=== PATIENT | female | born 1955 | race Caucasian/White ===

== ENCOUNTER → 2017-07-06 | Outpatient (CLI) | payer OTHER ==
[~2017-07-06] MED LIST: ALBUAER3 INH; ASPI1TAB57 PO; ATOR40TA16 PO; CERTTAB6 PO; FISH1000 PO; FISHCAP4 PO; FLUT1SPR16; LACTCAP8 PO; LINA145C PO; LOPR50TA12 PO; MAXZTAB PO; METO50TA PO; MIRA25TA PO; PROBCAP28 PO; TRIA37.5 PO; VESI10TA2 PO
[2017-07-06 09:05] LABS: HEMATOCRIT 39.9 % (35.0-46.0); MEAN CELL VOLUME 86.9 FL (80.0-100.0); MEAN CORPUSCULAR HEMOGLOBIN 29.7 PG (27.0-34.0); MEAN CORPUSCULAR HGB CONC 34.1 % (32.0-36.0); PLATELET COUNT 181 TH/MM3 (150-450); RED BLOOD COUNT 4.59 MIL/MM3 (4.00-5.30); REVIEW FLAG FINAL; WHITE BLOOD COUNT 5.8 TH/MM3 (4.0-11.0)
[2017-07-06 09:11] LABS: BLOOD, URINE NEG (NEG); COMMENT (UR) CATH-CULT NOT IND; CULTURE IF INDICATED CATH CULTURE NOT IND; GLUCOSE,URINE NEG (NEG); KETONE, URINE NEG (NEG); MUCUS URINE FEW /lpf (OCC); NITRITE,URINE NEG (NEG); SQUAMOUS EPITHELIAL CELL URINE 1 /hpf (0-5); URINE COLOR LIGHT-YELLOW (YELLW/STRAW)
[2017-07-06 09:14] LABS: APTT (PATIENT) 24.5 SEC (24.3-30.1); PROTHROMBIN TIME - PATIENT 10.7 SEC (9.8-11.6)
[2017-07-06 09:52] LABS: BICARBONATE 27.6 MEQ/L (21.0-32.0); POTASSIUM 3.9 MEQ/L (3.5-5.1)
--- NOTE | 2017-07-06 17:59 | EKG ---
Date Performed: 07/06/2017 Time Performed: 08:44:42 PTAGE: 61 years EKG: Sinus rhythm WITH FIRST DEGREE AV BLOCK LOW QRS VOLTAGE IN PRECORDIAL LEADS INCOMPLETE RIGHT BUNDLE BRANCH BLOCK POSSIBLE ANTERIOR MYOCARDIAL INFARCTION, PROBABLY OLD ABNORMAL ECG PREVIOUS TRACING : 04/07/2013 10.22 DOCTOR: Leeanne Ching Interpretating Date/Time 07/06/2017 17:57:46
== END ==
LOC: CPRE 08:04
PROVIDERS: ATTEND Orthopaedic Surgery
DX: Z01.812 Encounter for preprocedural laboratory examination (principal); Z01.810 Encounter for preprocedural cardiovascular examination; M79.609 Pain in unspecified limb; M17.12 Unilateral primary osteoarthritis, left knee; I10 Essential (primary) hypertension
CPT/HCPCS: 36415; 80048; 81001; 85027; 85610; 85730; 93005

== ENCOUNTER 2017-07-24 07:00 | Inpatient (IN) | payer OTHER ==
[~2017-07-24] VITALS: Ht 172.7 cm; Wt 107.4 kg
[~2017-07-24 07:00] MED LIST changes: -FISH1000 PO; -LOPR50TA12 PO; -MAXZTAB PO; -MIRA25TA PO; -PROBCAP28 PO
[2017-08-14] MEDS ORDERED: POVIDONE IODINE 5% (ANTISEPSIS KIT) 4 APPLICATIONS EACH NARE PRN (06:00)
[2017-08-14] MEDS ORDERED: CHLORHEXIDINE GLUCONATE 2 % 1 PACK (2 CLOTHS) TOPICAL PRN (06:00)
[2017-08-14] MEDS ORDERED: METOPROLOL TARTRATE 25 MG TAB PO PRN (06:00)
[2017-08-14] MEDS ORDERED: SODIUM CHLORID 0.9% 500 ML IV PRN (06:00)
[2017-08-14] MEDS ORDERED: LACTATED RINGER'S 1000 ML IV PRN (06:00)
[2017-08-14] MEDS ORDERED: GENTAMICIN SULFATE 80 MG/2 ML VIAL ONE (06:08)
[2017-08-14] MEDS ORDERED: CHLORHEXIDINE GLUCONATE 4% SOLN 120 ML BTL TOPICAL SCH (06:15)
[2017-08-14] MEDS ORDERED: ceFAZolin 2 GM PREMIX 50 ML IV SCH (06:15)
[2017-08-14] MEDS ORDERED: PROPOFOL 500 MG/50 ML INJ 50 ML ONE (06:35)
[2017-08-14] MEDS ORDERED: BUPIVACAINE LIPOSOME PF 1.3% 20 ML VIAL ONE (06:48)
--- NOTE | 2017-08-14 06:54 | HHI.FF ---
Face to Face Verification Diagnosis: (1) Status post total left knee replacement Physical Therapy Safety evaluation Knee: Total knee, Protocol: Left, Gait training, Full weight bearing Left LE Weight Bearing: WB as tolerated Left LE Range of Motion: Active ROM (AROM, AAROM, PROM. ROM goal is 0 to 130 degrees.) Nursing Nursing: Dressing changes Dressing Changes: Daily dressing change (starting on postop day 7.), Coverderm/ [place] Additional Instructions Remove steristrips on postop day 14. I have seen patient Pinky Crow on 08/14/17. My clinical findings support the need for the requested home health care services because: Ltd mobility - disease progression Limited ability to care for self High risk of falls I certify that my clinical findings support that this patient is homebound because: Post-op weakness Unsteady gait/balance Unsafe to leave home unassisted Kaylen Brewer MD ([place]) Aug 14, 2017 06:54
[2017-08-14] MEDS ORDERED: ECASA81 PO (06:58)
[2017-08-14] MEDS ORDERED: TRANEXAMIC ACID IV SCH ×2 (07:00→10:00)
[2017-08-14] MEDS ORDERED: SODIUM CHLORIDE 0.9% IV SCH ×2 (07:00→10:00)
[2017-08-14] MEDS ORDERED: ZOLPIDEM TARTRATE 5 MG TAB PO PRN (07:00)
[2017-08-14] MEDS ORDERED: ONDANSETRON HCL 4 MG/2 ML VIAL IVP PRN (07:00)
[2017-08-14] MEDS ORDERED: ALBUTEROL SULFATE 90 MCG/ACT HFA 8 GM INHALER INH PRN (07:00)
[2017-08-14] MEDS ORDERED: ACETAMINOPHEN/HYDROcodone 325 MG/7.5 MG TAB PO PRN (07:00)
[2017-08-14] MEDS ORDERED: TRANEXAMIC ACID INJ 0 MG in SODIUM CHLORIDE 0.9% INJ 100 ML IV SCH (07:00)
[2017-08-14] MEDS ORDERED: EXPAREL PERI-ARTICULAR INJECTION (TOTAL VOL. 100 ML) P-ARTICULR SCH ×2 (07:00)
[2017-08-14] MEDS ORDERED: Post-op Orders (for Pharmacy) XX ONE (07:00)
[2017-08-14] MEDS ORDERED: MAGNESIUM HYDROXIDE SUSP 30 ML CUP PO PRN (07:00)
[2017-08-14] MEDS ORDERED: MORPHINE SULFATE 2 MG/ML INJ IV PUSH PRN (07:30)
[2017-08-14] MEDS ORDERED: LINACLOTIDE PO SCH (08:00)
[2017-08-14] MEDS: FLUTICASONE PROPIONATE 50 MCG/ACT 16 GM NASAL SPRAY NASAL SCH (09:00)
[2017-08-14] MEDS: TRIAMTERENE/HCTZ 37.5 MG/25 MG TAB PO SCH (09:00)
[2017-08-14] MEDS: MULTIVITAMINS/MINERALS THERAPEUTIC TAB PO SCH (09:00)
--- NOTE | 2017-08-14 09:32 | PD.OP ---
Operative Report Date of Surgery: Aug 14, 2017 Preoperative Diagnosis: (1) Primary osteoarthritis of left knee Postoperative Diagnosis: (1) Primary osteoarthritis of left knee Procedure: Left total knee arthroplasty with [place] Triathlon prosthesis (uncemented) Anesthesia: Spinal with supplemental abductor canal block regional and local with bupivacaine liposomal Surgeon: Oneal Brewer M.D. Lock Up Worker(s): Alden Pablo Operation and Findings: Indications and Findings: A 61-year-old woman has a 9 year history of progressively worsening left knee pain. Over the past year this become functionally disabling so that she can only walk short distances because of pain. She has difficulty ascending and descending stairs, standing from a seated position and vice versa, walking any length of time and also has pain at rest. Treatment has included nonsteroidal anti-inflammatory agents exercise activity modification and intra-articular corticosteroid injections injections and Synvisc and ambulatory aids. This has not responded to the conservative measures. Physical findings shows medial laxity with general varum. There is crepitation on range of motion. There is swelling and tenderness. X-rays show loss of articular cartilage to expose subchondral bone medial compartment with osteophytes medially and in the patellofemoral joint. Operative findings were consistent with the radiographic findings with loss of articular cartilage to bone on bone in the medial compartment with subchondral sclerosis and osteophytes in the medial and patellofemoral compartments especially. The prosthesis used was a Emily Triathlon prosthesis. The femur was a size 4 cruciate retaining uncemented. The tibial baseplate was a size 4 Tritanium with a 9 mm cruciate retaining X3 polyethylene spacer. The patella was a size 32 mm asymmetric Tritanium backed. The patient was brought to the clean-air operating suite. A spinal anesthetic was administered as well as a regional anesthetic by abductor canal block. The position was supine with a small bolster under the hip on the operative side. A pneumatic tourniquet was applied to the upper thigh. The lower extremity was then prepped with alcohol, Hibiclens and ChloraPrep and draped in the usual manner with the knee draped free. An appropriate timeout procedure was carried out. An incision was made from about 3 fingerbreadths above the superior medial pole of patella down the tibial tubercle on the medial side. The incision was deepened through the subcutaneous tissue to the right macular structures which were exposed medially and laterally. A medial retinacular incision was then made from the superior middle pole of patella down the tibial tubercle and up into the quadriceps tendon splitting it longitudinally and the medial one third. The patella was reflected. The infrapatellar fat pad was debulked. The anterior cruciate ligament was excised. Medial and lateral meniscectomies were initiated. Fenestrations were made in the distal femur and proximal tibia for intramedullary referencing guides. The distal femoral cutting guide and jig were then assembled for a 5, 8 mm cut. When this was fit position and placed cutting block was stabilized with pins. The jig was removed. The distal femoral cut was then completed with the oscillating saw. The sizing guide was then positioned in place along Whitesides line and the epicondylar axis and stabilized with pins. The femoral size was then determined as noted above. The 4-in-1 cutting block was then positioned in place. Anterior and posterior cuts were made followed by posterior and anterior chamfer cuts taking care to prevent injury to ligamentous structures. Osteophytes were then trimmed from the distal femur. A bone plug was then placed into the fenestration of the distal femur. The proximal tibia was then exposed. The medial and lateral meniscectomies were completed. The extramedullary proximal tibial cutting guide was then positioned in place and stabilized for rotation. The depth of cut was then verified with a stylus off the lateral side. The cutting block was stabilized with pins. The jig was removed. The depth of cut was then verified and adjusted appropriately with the use of the spacer block. The proximal tibial cut was then made with the oscillating saw taking care to prevent injury to neurovascular and ligamentous structures. Proximal tibial bone was removed. Local anesthetic was administered with Exparel in the posterior capsule. The tibial baseplate trial was then positioned in place. After verifying the appropriate size, the base plate trial was positioned in place along with its spacer. The femoral component was then impacted into place. The alignment was checked. The tibial baseplate was then pinned in place on the tibia. Attention was directed to the patella. The patella drill guide was positioned in place for the appropriate sized patella. Patellar drilling was then carried out. The trial patella was positioned in place. The knee was taken through a range of motion which was easily 0 extension to 130. The patella trial was removed. The femoral drill holes were made. The femoral trials were removed. The tibial spacer was removed. A bone plug was placed into the proximal tibia. The tibial punch was impacted through the proximal tibial punch guide. This was all removed followed by placement of the tibial drill guide. The tibial drill holes were then made. The guide was removed. The cut ends of bone were then cleaned with pulse lavage. The tibial baseplate was then impacted into place and seated appropriately. The spacer was inserted. The the femoral component was then impacted into place and seated appropriately. The patella component was then seated with the patellar device and tightened appropriately. The knee was taken through a range of motion which was comparable to the previous range of motion with excellent stability in flexion and extension and appropriate patellofemoral tracking. The remainder of the Exparel was then injected throughout the knee as a local anesthetic. Drains were brought out the superior lateral aspect of the suprapatellar pouch. Wound closure then commenced using 0 Vicryl interrupted [id number] sutures for the capsular and fascial structures, 2-0 Vicryl interrupted simple sutures with buried knots for the subcutaneous tissues and 4- 0 Monocryl, tenuous subcuticular closure for the skin. The wound was then dressed with Steri-Strips followed by Optifoam silver impregnated dressing. Sterile soft roll with a cooling pad and Chele bandage from the base of the toes to mid thigh were then applied. Patient was then transferred from the operating room to the recovery room in satisfactory condition having tolerated procedure well. Counts are correct. Specimens: None. Kaylen Brewer MD ([place]) Aug 14, 2017 09:32
--- NOTE | 2017-08-14 09:37 | HHI.PR ---
Immediate Post Op Note Procedure Date: Aug 14, 2017 Pre Op Diagnosis: (1) Primary osteoarthritis of left knee Post Op Diagnosis: (1) Primary osteoarthritis of left knee Surgeon: Oneal Brewer M.D. Rubber Tester(s): Alden Pablo Procedure: Left total knee arthroplasty with Emily Triathlon prosthesis (uncemented) Findings: Osteoarthritis, left knee Complications: None Specimen(s) removed: None Estimated blood loss: 150 mL Anesthesia: Regional Block (adductor canal), Spinal, Local (Exparel) Drains: Hemovac (2) IVF Patient to: PACU Patient Condition: Good Implant/Devices: SEE IMPLANT LOG (if applicable) Date/Time of Procedure: SEE SURGICAL CARE RECORD Kaylen Brewer MD ([place]) Aug 14, 2017 09:37
[2017-08-14] MEDS ORDERED: HYDR-3580 PO (09:38)
[2017-08-14] MEDS ORDERED: DO NOT ADM ANY ANTICOAGULANT DRUGS PRN (09:39)
[2017-08-14] MEDS ORDERED: *morphine SULFATE 8 MG/ML PERIprocedure ONLY ONE (09:48)
[2017-08-14] MEDS ORDERED: *MEPERIDINE 25 MG INJ VIAL PERIprocedural Use ONLY ONE (09:58)
[2017-08-14] MEDS: LACTATED RINGER'S 1000 ML INJ 1,000 ML IV SCH ×2 (10:00→19:30)
--- NOTE | 2017-08-14 10:18 | RADRPT ---
EXAM DATE/TIME: 08/14/2017 09:44 [facility] COMPARISON: No previous studies available for comparison. INDICATIONS : Post-op left knee. MEDICAL HISTORY : None. SURGICAL HISTORY : H/O right knee surgery. ENCOUNTER: Initial ACUITY: 1 day PAIN SCORE: 5/10 LOCATION: Left Knee. FINDINGS: Two view examination of the left knee demonstrates the patient had a total knee arthroplasty in good position. There is no acute fracture. 2 surgical drains overlie the knee.. CONCLUSION: Total knee arthroplasty in good position. Sabino Whiting MD on August 14, 2017 at 10:15 Board Certified Radiologist. This report was verified electronically.
[2017-08-14] MEDS: KETOROLAC TROMETHAMINE 30 MG/ML (IVP) VIAL IVP SCH ×3 (10:45→20:55)
[2017-08-14 14:30] VITALS: BP 130/80; PULSE 88; RESP 16; TEMP 97; O2SAT 95
[2017-08-14 16:00] VITALS: BP 135/82; PULSE 79; RESP 16; TEMP 99.6; O2SAT 95
--- NOTE | 2017-08-14 17:41 | PD.CONS ---
HPI Service [facility] Consult Requested By Dr. Brewer Reason for Consult Medical management Primary Care Physician Evan Russell MD Diagnoses: (1) Hypertension (2) Hyperlipidemia (3) Primary osteoarthritis of left knee (4) Status post total left knee replacement History of Present Illness 61-year-old female with a medical history significant for hypertension, hyperlipidemia, and osteoarthritis admitted for left knee arthroplasty. The patient reports she has been struggling with knee arthritis for a while. She failed medical management and has been admitted for knee arthroplasty. Patient is seen postoperatively in her room. She reports her pain is well controlled. Regarding hypertension and hyperlipidemia, she reports they have been controlled with her current medications. Complete medical history reviewed with the patient. Review of Systems Respiratory: DENIES: Shortness of breath Cardiovascular: DENIES: Dyspnea on Exertion, Lower Extremity Edema Musculoskeletal: COMPLAINS OF: Joint pain Except as stated in HPI: all other systems reviewed are Neg Past Family Social History Allergies: Coded Allergies: adhesive (Unverified Allergy, Intermediate, BLISTERS; SWELLING, 08/14/17) Past Medical History Hypertension Hyperlipidemia Osteoarthritis Overactive bladder Past Surgical History Right knee arthroplasty Cholecystectomy Hysterectomy Bladder suspension surgery Reported Medications Reported Meds & Active Scripts Active Hydrocodone-Acetamin 7.5-325 (Hydrocodone/Acetaminophen) 7.5 Mg-325 Mg Tablet 1 Tab PO Q4H PRN Reported Probiotic (Lactobacillus Acidophilus) 10 Billion Cell Cap 1 Cap PO BID Proair Hfa 8.5 GM Inh (Albuterol Sulfate) 90 Mcg/Act Aer 1 Puff INH BID PRN 108 mcg/actuation Sm Allergy Relief Nasal S (Fluticasone Propionate (Nasal)) 50 Mcg/Actuation Spr 50 [place] NA DAILY Triamterene-Hydrochlorothiazide 37.5-25 Mg Tab 1 Tab PO DAILY Linzess (Linaclotide) 145 Mcg Cap 145 Mcg PO DAILY Vesicare (Solifenacin) 10 Mg Tab 10 Mg PO DAILY Metoprolol Tartrate 50 Mg Tab 50 Mg PO BID Atorvastatin (Atorvastatin Calcium) 40 Mg Tab 40 Mg PO HS Certavite Senior/Antioxid (Multiple Vitamins W/ Minerals) 0.4 Mg-300 Mcg-250 Mcg Tab 0.4 Cap PO DAILY Fish Oil + D3 (Fish Oil-Cholecalciferol) 1,200-1,000 Mg-Unit Cap 1 Cap PO DAILY Aspirin 81 (Aspirin) 81 Mg Tabdr 81 Mg PO DAILY Family History Reviewed and found to be noncontributory. Social History Patient does not use tobacco. Admits to occasional alcohol use. Physical Exam Vital Signs Vital Signs Date Time Temp Pulse Resp B/P (MAP) Pulse Ox O2 Delivery O2 Flow Rate FiO2 08/14/17 14:39 97 Room Air 08/14/17 14:10 97.6 68 16 125/70 (88) 97 Room Air 08/14/17 14:00 69 16 127/72 (90) 96 Room Air 08/14/17 13:00 70 16 133/71 (91) 96 Room Air 08/14/17 12:00 73 16 142/62 (88) 96 Room Air 08/14/17 11:00 64 16 144/68 (93) 96 Room Air 08/14/17 10:50 15 08/14/17 10:45 62 16 147/70 (95) 95 Room Air 08/14/17 10:30 97.6 60 16 149/66 (93) 95 Room Air 08/14/17 10:15 59 16 145/67 (93) 94 Room Air 08/14/17 10:00 58 15 140/68 (92) 94 Room Air 08/14/17 09:53 15 08/14/17 09:45 57 15 135/78 (97) 100 Nasal Cannula 2 08/14/17 09:38 97.5 59 15 131/74 (93) 99 Nasal Cannula 2 08/14/17 06:00 98.0 64 20 145/76 (99) 96 Physical Exam CONSTITUTIONAL/GENERAL: This is an adequately nourished patient, in no apparent distress. Vital signs reviewed SKIN: No jaundice, rashes, or concerning lesions. Not diaphoretic. HEAD: Atraumatic. Normocephalic. EYES: Pupils equal and round and reactive. Extra ocular motions are intact. No scleral icterus. No injection or drainage. ENT: Hearing grossly normal. Nose without drainage. Throat without visible erythema, exudates, masses, or lesions. NECK: Trachea midline. Neck is supple, non-tender. No palpable thyroid enlargement or nodularity. CARDIOVASCULAR: Normal rate and regular rhythm without murmurs, gallops, or rubs. No JVD. Peripheral pulses 2+ and symmetric. RESPIRATORY/CHEST: Symmetric, unlabored respirations. Breath sounds equal and clear to auscultation bilaterally. No wheezes, crackles, rales, or rhonchi. GASTROINTESTINAL: Abdomen soft, non-tender, non-distended. No hepato- splenomegaly, or palpable masses. No guarding. Bowel sounds present. MUSCULOSKELETAL: Left knee postop dressing intact. There is a drain in place. Neurovascularly intact distally at the foot/toes NEUROLOGICAL: Awake and alert. Motor and sensory grossly within normal limits. Follows commands. Move all extremities spontaneously. No focal deficits. PSYCHIATRIC: No obvious mood problems. No apparent hallucinations or other psychotic thought process. Imaging Last Impressions Knee X-Ray 08/14/17 0646 Signed Impressions: Service Date/Time: Monday, August 14, 2017 09:44 - CONCLUSION: Total knee arthroplasty in good position. Sabino Whiting MD Assessment and Plan Problem List: (1) Primary osteoarthritis of left knee ICD Code: M17.12 - Unilateral primary osteoarthritis, left knee (2) Status post total left knee replacement ICD Code: Z96.652 - Presence of left artificial knee joint (3) Hypertension ICD Code: I10 - Essential (primary) hypertension (4) Hyperlipidemia ICD Code: E78.5 - Hyperlipidemia, unspecified Assessment and Plan 61-year-old female admitted for left knee arthroplasty: Osteoarthritis of the left knee status post knee replacement: - Routine postoperative care per orthopedics - Pain control - PT Hypertension: - Continue home dose antihypertensives. - Follow BP and adjust as needed. Hyperlipidemia: - Continue statin GI prophylaxis: Stool softener PRN constipation. DVT PPx: Per orthopedics The patient's chronic medical problems appear to be stable at this point. We' ll sign off. Please call reconsult with questions Discussed Condition With Patient, and nurse. Luis Tomlinson MD Aug 14, 2017 17:41
[2017-08-14] MEDS: ACETAMINOPHEN/HYDROcodone 325 MG/7.5 MG TAB PO PRN ×2 (18:00→22:31)
[2017-08-14 20:40] VITALS: BP 127/66; PULSE 72; RESP 16; TEMP 97.7; O2SAT 98
[2017-08-14] MEDS: LACTOBACILLUS ACIDOPHILUS TAB PO SCH (20:54)
[2017-08-14] MEDS ORDERED: ATORVASTATIN 40 MG TAB PO SCH (21:00)
[2017-08-14] MEDS: METOPROLOL TARTRATE 50 MG TAB PO SCH (21:00)
[2017-08-14 23:30] VITALS: BP 143/62; PULSE 74; RESP 16; TEMP 97.9; O2SAT 97
[2017-08-15] MEDS: KETOROLAC TROMETHAMINE 30 MG/ML (IVP) VIAL IVP SCH ×3 (02:52→15:00)
[2017-08-15 04:45] VITALS: BP 119/60; PULSE 70; RESP 16; TEMP 97.4; O2SAT 98
[2017-08-15 06:48] LABS: HEMATOCRIT 33.1 % (35.0-46.0); REVIEW FLAG FINAL
--- NOTE | 2017-08-15 07:19 | PD.ORT.PN ---
Subjective Post Op Day #: 1 Subjective Remarks She is doing well. She has minimal complaints related to her knee at this time. She has done well with physical therapy. She has also been walking independently and the hallway. Range of Motion 0-92. Distance Walked 25 feet; then 85 feet. Objective Vitals Vital Signs Date Time Temp Pulse Resp B/P (MAP) Pulse Ox O2 Delivery O2 Flow Rate FiO2 08/15/17 04:45 97.4 70 16 119/60 (79) 98 08/14/17 23:30 97.9 74 16 143/62 (89) 97 08/14/17 20:40 97.7 72 16 127/66 (86) 98 08/14/17 16:00 99.6 79 16 135/82 (99) 95 08/14/17 14:39 97 Room Air 08/14/17 14:30 97.0 88 16 130/80 (97) 95 08/14/17 14:10 97.6 68 16 125/70 (88) 97 Room Air 08/14/17 14:00 69 16 127/72 (90) 96 Room Air 08/14/17 13:00 70 16 133/71 (91) 96 Room Air 08/14/17 12:00 73 16 142/62 (88) 96 Room Air 08/14/17 11:00 64 16 144/68 (93) 96 Room Air 08/14/17 10:50 15 08/14/17 10:45 62 16 147/70 (95) 95 Room Air 08/14/17 10:30 97.6 60 16 149/66 (93) 95 Room Air 08/14/17 10:15 59 16 145/67 (93) 94 Room Air 08/14/17 10:00 58 15 140/68 (92) 94 Room Air 08/14/17 09:53 15 08/14/17 09:45 57 15 135/78 (97) 100 Nasal Cannula 2 08/14/17 09:38 97.5 59 15 131/74 (93) 99 Nasal Cannula 2 I/O 08/14/17 08/14/17 08/14/17 08/15/17 08/15/17 08/15/17 07:00 15:00 23:00 07:00 15:00 23:00 Intake Total 1520.74 ml 480 ml 360 ml Output Total 1280 ml 140 ml 60 ml Balance 240.74 ml 340 ml 300 ml Intake Oral 480 ml 360 ml IV Total 1520.74 ml Output Urine Total 1100 ml Drainage Total 80 ml 140 ml 60 ml Estimated Blood Loss 100 ml # Voids 4 1 # Bowel Movements 0 0 Result Diagram: 08/15/17 0530 Imaging Last 72 hours Impressions Knee X-Ray 08/14/17 0646 Signed Impressions: Service Date/Time: Monday, August 14, 2017 09:44 - CONCLUSION: Total knee arthroplasty in good position. Sabino Whiting MD Objective Remarks She is resting comfortably, supine in bed, in the CPM. The neurovascular status is intact. The dressing is dry and intact. Assessment & Plan Ortho Post Op Day #: 1 Problem List: (1) Status post total left knee replacement ICD Codes: Z96.652 - Presence of left artificial knee joint Plan: Continue postop care and PT. Assessment and Plan Condition: Good. Orthopedically stable. DVT prophylaxis: TEDs, aspirin, sequentials. Discharge plans: Home with home health care. An appointment was scheduled through the office. Prescriptions: [place] 7.5/325 Kaylen Brewer MD ([place]) Aug 15, 2017 07:19
--- NOTE | 2017-08-15 07:37 | HHI.DS ---
Discharge Summary Admission Date Aug 14, 2017 at 05:17 Discharge Date: Aug 15, 2017 Admitting Diagnosis Primary osteoarthritis, left knee. Diagnosis: (1) Status post total left knee replacement Diagnosis: Principal ICD Codes: Z96.652 - Presence of left artificial knee joint (2) Primary osteoarthritis of left knee Diagnosis: Principal ICD Codes: M17.12 - Unilateral primary osteoarthritis, left knee Procedures Left total knee arthroplasty with [place] Triathlon prosthesis (uncemented) on 08/14/2017 Brief History This is a 61 year old female patient has had long-standing left knee pain nonresponsive to conservative, nonoperative methods as described in the history and physical examination. Physical findings showed genu varum with medial tenderness and medial laxity. X-rays showed loss of articular cartilage to bone on bone with medial eburnation and osteophytes. CBC/BMP: 08/15/17 0530 Significant Findings Laboratory Tests Test 08/15/17 05:30 Hemoglobin 11.5 GM/DL (11.6-15.3) Hematocrit 33.1 % (35.0-46.0) Imaging Last 72 hours Impressions Knee X-Ray 08/14/17 0646 Signed Impressions: Service Date/Time: Monday, August 14, 2017 09:44 - CONCLUSION: Total knee arthroplasty in good position. Sabino Whiting MD PE at Discharge She is resting comfortably, supine in bed, in the CPM. The neurovascular status is intact. The dressing is dry and intact. Hospital Course She was admitted on 08/14/2017. She had the above-noted total knee arthroplasty carried out and tolerated the procedure well. DVT prophylaxis is initiated with [place] stockings, sequentials and aspirin. She received prophylactic antibiotics in the form of Ancef according to the protocols. CPM devices initiated in recovery room. She was started on physical therapy on the day of surgery. She progressed to the point that she was easily able to walk 80 feet with a physical therapist and had a range of motion from 0 extension to 92 of flexion. She was walking independently in the halls. Pt Condition on Discharge: Good Discharge Disposition: Disch w/ Home Health Serv Discharge Instructions Diet Instructions: As Tolerated, No Restrictions Activities You Can Perform: Partial Weight Bearing, Shower Only-No Bath Activities to Avoid: Lifting/Bending, Strenuous Activity, Bathing, Driving Follow up Referrals: Orthopedics with Kaylen Brewer MD ([place]) New Medications: Aspirin (Aspirin DR) 81 Mg Tabdr 81 MG PO BID for Prevent Blood Clot for 14 Days, #28 TAB Hydrocodone/Acetaminophen (Hydrocodone-Acetamin 7.5-325) 7.5 Mg-325 Mg Tablet 1 TAB PO Q4H PRN for PAIN SCALE 1 TO 10, #50 TAB Continued Medications: Albuterol 8.5 GM Inh (Proair Hfa 8.5 GM Inh) 90 Mcg/Act Aer 1 PUFF INH BID PRN for SHORTNESS OF BREATH, #1 INHALER 0 Refills 108 mcg/actuation Atorvastatin (Atorvastatin) 40 Mg Tab 40 MG PO HS for Cholesterol Management, #30 TAB 0 Refills Fish Oil-Cholecalciferol (Fish Oil + D3) 1,200-1,000 Mg-Unit Cap 1 CAP PO DAILY for Nutritional Supplement, #30 CAP 0 Refills Fluticasone Propionate (Nasal) (Sm Allergy Relief Nasal S) 50 Mcg/Actuation Spr 50 SPRAY NA DAILY Lactobacillus Acidophilus (Probiotic) 10 Billion Cell Cap 1 CAP PO BID for Nutritional Supplement, #90 CAP 0 Refills Linaclotide (Linzess) 145 Mcg Cap 145 MCG PO DAILY, CAP 0 Refills Metoprolol Tartrate (Metoprolol Tartrate) 50 Mg Tab 50 MG PO BID, #60 TAB 0 Refills Multiple Vitamins W/ Minerals (Certavite Senior/Antioxid) 0.4 Mg-300 Mcg-250 Mcg Tab 0.4 CAP PO DAILY Solifenacin (Vesicare) 10 Mg Tab 10 MG PO DAILY for Urinary Symptom Managemen, #30 TAB 0 Refills Triamterene-Hydrochlorothiazide (Triamterene-Hydrochlorothiazide) 37.5-25 Mg Tab 1 TAB PO DAILY, #30 TAB 0 Refills Discontinued Medications: Aspirin (Aspirin 81) 81 Mg Tabdr 81 MG PO DAILY, TAB 0 Refills Kaylen Brewer MD ([place]) Aug 15, 2017 07:37
--- NOTE | 2017-08-15 07:54 | HHI.PR ---
Subjective Remarks Very pleasant, in the chair. She was ambulating in the hallways earlier today. No fever or chills. Has some nausea especially with pain meds. No v/d/c. Tolerated PT Objective Vitals Vital Signs Date Time Temp Pulse Resp B/P (MAP) Pulse Ox O2 Delivery O2 Flow Rate FiO2 08/15/17 04:45 97.4 70 16 119/60 (79) 98 08/14/17 23:30 97.9 74 16 143/62 (89) 97 08/14/17 20:40 97.7 72 16 127/66 (86) 98 08/14/17 16:00 99.6 79 16 135/82 (99) 95 08/14/17 14:39 97 Room Air 08/14/17 14:30 97.0 88 16 130/80 (97) 95 08/14/17 14:10 97.6 68 16 125/70 (88) 97 Room Air 08/14/17 14:00 69 16 127/72 (90) 96 Room Air 08/14/17 13:00 70 16 133/71 (91) 96 Room Air 08/14/17 12:00 73 16 142/62 (88) 96 Room Air 08/14/17 11:00 64 16 144/68 (93) 96 Room Air 08/14/17 10:50 15 08/14/17 10:45 62 16 147/70 (95) 95 Room Air 08/14/17 10:30 97.6 60 16 149/66 (93) 95 Room Air 08/14/17 10:15 59 16 145/67 (93) 94 Room Air 08/14/17 10:00 58 15 140/68 (92) 94 Room Air 08/14/17 09:53 15 08/14/17 09:45 57 15 135/78 (97) 100 Nasal Cannula 2 08/14/17 09:38 97.5 59 15 131/74 (93) 99 Nasal Cannula 2 I/O 08/14/17 08/14/17 08/14/17 08/15/17 08/15/17 08/15/17 07:00 15:00 23:00 07:00 15:00 23:00 Intake Total 1520.74 ml 480 ml 360 ml Output Total 1280 ml 140 ml 60 ml Balance 240.74 ml 340 ml 300 ml Intake Oral 480 ml 360 ml IV Total 1520.74 ml Output Urine Total 1100 ml Drainage Total 80 ml 140 ml 60 ml Estimated Blood Loss 100 ml # Voids 4 1 # Bowel Movements 0 0 Result Diagram: 08/15/17 0530 Imaging Last Impressions Knee X-Ray 08/14/17 0646 Signed Impressions: Service Date/Time: Monday, August 14, 2017 09:44 - CONCLUSION: Total knee arthroplasty in good position. Sabino Whiting MD Objective Remarks GENERAL: This is an adequately nourished patient, in no apparent distress. Vital signs reviewed CARDIOVASCULAR: Normal rate and regular rhythm without murmurs, gallops, or rubs. No JVD. Peripheral pulses 2+ and symmetric. RESPIRATORY/CHEST: Symmetric, unlabored respirations. Breath sounds equal and clear to auscultation bilaterally. No wheezes, crackles, rales, or rhonchi. GASTROINTESTINAL: Abdomen soft, non-tender, non-distended. No hepato- splenomegaly, or palpable masses. No guarding. Bowel sounds present. MUSCULOSKELETAL: Left knee postop dressing intact. There is a drain in place. Neurovascularly intact distally at the foot/toes NEUROLOGICAL: Awake and alert. Motor and sensory grossly within normal limits. Follows commands. Move all extremities spontaneously. No focal deficits. PSYCHIATRIC: No obvious mood problems. No apparent hallucinations or other psychotic thought process. A/P Problem List: (1) Primary osteoarthritis of left knee ICD Code: M17.12 - Unilateral primary osteoarthritis, left knee (2) Status post total left knee replacement ICD Code: Z96.652 - Presence of left artificial knee joint (3) Hypertension ICD Code: I10 - Essential (primary) hypertension (4) Hyperlipidemia ICD Code: E78.5 - Hyperlipidemia, unspecified Assessment and Plan 61-year-old female admitted for left knee arthroplasty: Osteoarthritis of the left knee status post knee replacement: - Routine postoperative care per orthopedics - Pain control - PT Hypertension: controlled. Monitor BP closely. Hold narcotics if low BP also hold BP meds if SBP< 110 - Continue home dose antihypertensives. - Follow BP and adjust as needed. Hyperlipidemia: - Continue statin GI prophylaxis: Stool softener PRN constipation. DVT PPx: Per orthopedics Discussed Condition With Patient, nurse. Appears stable medically Vnaessa Santiago MD Aug 15, 2017 07:54
[2017-08-15 07:59] VITALS: O2SAT 97
[2017-08-15 08:00] VITALS: BP 154/82; PULSE 72; RESP 18; TEMP 98.3; O2SAT 97
[2017-08-15] MEDS: LACTATED RINGER'S 1000 ML INJ 1,000 ML IV SCH (08:00)
[2017-08-15] MEDS: MULTIVITAMINS/MINERALS THERAPEUTIC TAB PO SCH ×2 (08:32→09:00)
[2017-08-15] MEDS: METOPROLOL TARTRATE 50 MG TAB PO SCH ×2 (08:33→09:00)
[2017-08-15] MEDS: LACTOBACILLUS ACIDOPHILUS TAB PO SCH (08:33)
[2017-08-15] MEDS: TRIAMTERENE/HCTZ 37.5 MG/25 MG TAB PO SCH ×2 (08:33→09:00)
[2017-08-15] MEDS: TOLTERODINE TARTRATE 4 MG CAP LA PO SCH ×2 (08:33→09:00)
[2017-08-15] MEDS: ACETAMINOPHEN/HYDROcodone 325 MG/7.5 MG TAB PO PRN (08:34)
[2017-08-15] MEDS: CHOLECALCIFEROL (VIT D3) 1000 UNIT TAB PO SCH ×2 (08:34→09:00)
[2017-08-15] MEDS: FLUTICASONE PROPIONATE 50 MCG/ACT 16 GM NASAL SPRAY NASAL SCH (09:00)
[2017-08-15] MEDS ORDERED: ASPIRIN EC 81 MG TABEC PO SCH (09:00)
[2017-08-15 09:35] VITALS: RESP 16
[2017-08-15] MEDS ORDERED: INFLUENZA VIRUS VACCINE (QUADRIVALENT) 0.5 ML SYR IM ONE (10:00)
[2017-08-15] MEDS ORDERED: DOCUSATE SODIUM 100 MG CAP PO SCH (21:00)
== END 2017-08-15 15:26 | disposition home health service (06) | DRG 470 ==
LOC: HSDI 08-14 05:17 → N06A 08-14 14:26
PROVIDERS: ADMIT Orthopaedic Surgery; ATTEND Orthopaedic Surgery
PROC: 3E0T3BZ Introduction of Anesthetic Agent into Peripheral Nerves and Plexi, Percutaneous Approach (ICD-10-PCS; 2017-08-14)
PROC: 0SRD0JA Replacement of Left Knee Joint with Synthetic Substitute, Uncemented, Open Approach (ICD-10-PCS; principal; 2017-08-14 06:42)
DX: M17.12 Unilateral primary osteoarthritis, left knee (principal); I10 Essential (primary) hypertension; M25.762 Osteophyte, left knee; M21.169 Varus deformity, not elsewhere classified, unspecified knee; E78.5 Hyperlipidemia, unspecified; M19.90 Unspecified osteoarthritis, unspecified site; N32.81 Overactive bladder; E66.9 Obesity, unspecified; Z68.36 Body mass index [BMI] 36.0-36.9, adult; Z23 Encounter for immunization
CPT/HCPCS: 73560; 85014; 85018; 86850; 86900; 86901; 90686; 94150; C9290; J0690; J1580; J1885; J2175; J2270; J7120; Q2038

== ENCOUNTER → 2017-08-03 | Outpatient (CLI) | payer OTHER ==
[~2017-08-03] MED LIST changes: +ECASA81 PO; +HYDR-3580 PO
[2017-08-03 12:46] LABS: BLOOD, URINE NEG (NEG); GLUCOSE,URINE NEG (NEG); KETONE, URINE NEG (NEG); NITRITE,URINE NEG (NEG); PH, URINE 6.5 (5.0-8.5); SQUAMOUS EPITHELIAL CELL URINE 2 /hpf (0-5); URINE COLOR LIGHT-YELLOW (YELLW/STRAW)
[2017-08-03 12:48] LABS: COMMENT (UR) CATH-CULT NOT IND; CULTURE IF INDICATED CATH CULTURE NOT IND
[2017-08-03 12:55] LABS: HEMATOCRIT 39.5 % (35.0-46.0); MEAN CELL VOLUME 87.3 FL (80.0-100.0); MEAN CORPUSCULAR HEMOGLOBIN 29.6 PG (27.0-34.0); MEAN CORPUSCULAR HGB CONC 33.9 % (32.0-36.0); PLATELET COUNT 182 TH/MM3 (150-450); RED BLOOD COUNT 4.53 MIL/MM3 (4.00-5.30); RED CELL DISTRIBUTION WIDTH 13.1 % (11.6-17.2); REVIEW FLAG FINAL; WHITE BLOOD COUNT 6.8 TH/MM3 (4.0-11.0)
== END ==
LOC: CPRE 11:23
PROVIDERS: ATTEND Orthopaedic Surgery
DX: Z01.812 Encounter for preprocedural laboratory examination (principal); M79.609 Pain in unspecified limb; M17.12 Unilateral primary osteoarthritis, left knee; I10 Essential (primary) hypertension
CPT/HCPCS: 36415; 81001; 85027